=== PATIENT | female | born 1950 | race Hispanic/Latino ===

== ENCOUNTER 2021-03-27 12:29 | Emergency (ER) | payer OTHER ==
[~2021-03-27] VITALS: Ht 139.7 cm; Wt 64.0 kg
[2021-03-27] MEDS ORDERED: ONDANSETRON 4MG INJ IVP ONE (13:00)
[2021-03-27 13:03] LABS: HEMATOCRIT 34.9 % (36-48); LYMPHOCYTES % (AUTO) 30.2 % (21.0-51.0); MEAN CORPUSCULAR HEMOGLOBIN 27.4 pg (27.0-33.0); MEAN CORPUSCULAR HGB CONC 32.4 g/dL (32.0-36.0); MEAN CORPUSCULAR VOLUME 84.5 fL (79-99); MONOCYTES % (AUTO) 6.1 % (3.0-13.0); NEUTROPHILS % (AUTO) 61.4 % (40.0-77.0); PLATELET COUNT (AUTO) 385 K/uL (130-400); RED BLOOD CELL COUNT(AUTO) 4.13 MIL/uL (4.00-5.50); RED CELL DISTRIBUTION WIDTH 13.8 % (11.0-15.5); WHITE BLOOD COUNT (AUTO) 8.7 K/uL (4.8-10.8)
[2021-03-27 13:14] LABS: CREATININE 0.7 mg/dL (0.5-1.5); POTASSIUM 3.5 mmol/L (3.5-5.1)
[2021-03-27 13:18] LABS: ALBUMIN 4.2 g/dL (3.5-5.0); BILIRUBIN,TOTAL 0.2 mg/dL (0.2-1.0); TOTAL PROTEIN, SERUM 8.3 g/dL (6.0-8.3)
[2021-03-27] MEDS ORDERED: KETOROLAC 30MG VIAL (30MG/ML) IV SCH (13:30)
[2021-03-27] MEDS ORDERED: IOHEXOL-350 75 ML VIAL IV ONE (14:06)
[2021-03-27] MEDS ORDERED: MAG/ALUM/SIMETH 30 ML UDCUP PO ONE (15:00)
[2021-03-27] MEDS ORDERED: LIDOCAINE HCL 2% VISCOUS 15 ML UDCUP PO ONE (15:00)
[2021-03-27] MEDS ORDERED: DICYCLOMINE HCL 10 MG/5 ML ML PO ONE (15:00)
[2021-03-27] MEDS ORDERED: PANT40TA55 PO (15:27)
[2021-03-27 15:43] VITALS: BP 141/73
[2021-03-29] MEDS ORDERED: METFORMIN/GLYBURIDE PO (07:47)
[2021-03-31] MEDS ORDERED: AMOX1TAB15 PO (07:29)
== END 2021-03-27 15:56 | disposition home or self-care (01) ==
LOC: EDH 12:29
DX: K21.9 Gastro-esophageal reflux disease without esophagitis (principal); K57.90 Diverticulosis of intestine, part unspecified, without perforation or abscess without bleeding; E11.9 Type 2 diabetes mellitus without complications
CPT/HCPCS: 36415; 71045; 74177; 80053; 82150; 82550; 83690; 84484; 85025; 93005; 96374; 96375; 99285; J1885; J2405; Q9967